=== PATIENT | female | born 1995 | race Caucasian/White ===

== ENCOUNTER 2017-08-27 17:36 | Emergency (ER) | payer SELFPAY ==
[~2017-08-27] VITALS: Ht 162.6 cm; Wt 47.5 kg
[~2017-08-27 17:36] MED LIST: BACT5UDC PO; MACR100C PO; PANT20 PO; Z.0.NO CURRENT MEDS
[2017-08-27 17:48] VITALS: BP 120/70; PULSE 101; RESP 16; TEMP 98.3; O2SAT 99
--- NOTE | 2017-08-27 18:14 | PD ---
HPI Chief Complaint: Engineer Process Problem/Complaint Time Seen by Provider: 17:56 Travel History International Travel<30 days: No Contact w/Intl Traveler<30days: No Traveled to known affect area: No History of Present Illness HPI This is a 22-year-old female who presents here complaining of STD exposure. She says that she had unprotected sex with a heterosexual partner and she was told that he had STD although she is unsure what exactly her partner has. She denies any pelvic pain, no vaginal bleeding or discharge. No fevers chills or night sweats no urinary frequency or urgency. PFSH Past Medical History Immunizations Current: Yes ?: Unknown Social History Alcohol Use: No Tobacco Use: No Substance Use: Yes (THC occasional use) Allergies-Medications (Allergen,Severity, Reaction): Coded Allergies: No Known Allergies (Verified Allergy, Unknown, 08/27/17) Reported Meds & Prescriptions Reported Meds & Active Scripts Active Macrobid (Nitrofurantoin Macrocrystals) 100 Mg Cap 100 Mg PO BID 5 Days Protonix (Pantoprazole Sodium) 20 Mg Tabdr 20 Mg PO DAILY 21 Days Bactrim Susp Per 5 Ml (Trimethoprim/Sulfamethoxazole) 40 Mg/200 Mg Susp 15 Ml PO BID 10 Days Reported No Current Meds (Miscellaneous Medication) Misc Review of Systems Except as stated in HPI: all other systems reviewed are Neg Physical Exam Narrative GENERAL: Alert oriented 3. SKIN: Focused skin assessment warm/dry. HEAD: Atraumatic. Normocephalic. EYES: Pupils equal and round. No scleral icterus. No injection or drainage. ENT: No nasal bleeding or discharge. Mucous membranes pink and moist. NECK: Trachea midline. No JVD. CARDIOVASCULAR: Regular rate and rhythm. No murmur appreciated. RESPIRATORY: No accessory muscle use. Clear to auscultation. Breath sounds equal bilaterally. GASTROINTESTINAL: Abdomen soft, non-tender, nondistended. Hepatic and splenic margins not palpable. MUSCULOSKELETAL: No obvious deformities. No clubbing. No cyanosis. No edema. NEUROLOGICAL: Awake and alert. No obvious cranial nerve deficits. Motor grossly within normal limits. Normal speech. PSYCHIATRIC: Appropriate mood and affect; insight and judgment normal. Data Data Last Documented VS Vital Signs Date Time Temp Pulse Resp B/P (MAP) Pulse Ox O2 Delivery O2 Flow Rate FiO2 08/27/17 19:20 98.2 92 18 123/74 (90) 98 Orders Orders Gc And Chlamydia Pcr (08/27/17 18:03) Urinalysis - C+S If Indicated (08/27/17 18:03) Azithromycin (Zithromax) (08/27/17 18:15) Ceftriaxone Inj (Rocephin Inj) (08/27/17 18:15) Metronidazole (Flagyl) (08/27/17 18:45) Ed Discharge Order (08/27/17 18:34) Urine Culture (08/27/17 18:30) Labs Laboratory Tests Test 08/27/17 18:30 Urine Collection Type CLEAN CATCH Urine Color YELLOW Urine Turbidity CLEAR Urine pH 6.0 Urine Specific [place] LESS/EQUAL 1.005 Urine Protein NEG mg/dL Urine Glucose (UA) NEG mg/dL Urine Ketones NEG mg/dL Urine Occult Blood NEG Urine Nitrite NEG Urine Bilirubin NEG Urine Urobilinogen 0.2 MG/DL Urine Leukocyte Esterase SMALL Urine WBC 9-14 /hpf Urine WBC Clumps OCC Urine Squamous Epithelial Cells 6-8 /hpf Microscopic Urinalysis Comment CULTURE INDICATED Urine Collection Time 18:30 Chlamydia trachomatis DNA (PCR) NOT DETECTED Neisseria gonorrhoeae DNA (PCR) DETECTED MDM Medical Decision Making Medical Screen Exam Complete: Yes Emergency Medical Condition: Yes Differential Diagnosis STD exposure. Narrative Course This is a 22-year-old female presents to the ER complaining of STD exposure. Patient has no symptoms we will go ahead and treat her for STD and send the labs. Explained the patient it will take about 3 days to come back and she needs a follow-up on the results. Diagnosis Primary Impression: STD exposure Disposition: 01 DISCHARGE HOME Condition: Stable Tremaine Gomes MD Aug 27, 2017 18:14
[2017-08-27] MEDS ORDERED: AZITHROMYCIN 250 MG TAB PO ONE (18:15)
[2017-08-27] MEDS ORDERED: cefTRIAXone 250 MG VIAL IM ONE (18:15)
[2017-08-27 18:38] LABS: BILIRUBIN, URINE NEG (NEG); BLOOD, URINE NEG (NEG); GLUCOSE,URINE NEG (NEG); KETONE, URINE NEG (NEG); NITRITE,URINE NEG (NEG); URINE COLOR YELLOW (YELLW/STRAW); URINE LEUKOCYTE ESTERASE SMALL (NEG)
[2017-08-27 18:45] LABS: WHITE BLOOD CELL CLUMPS OCC
[2017-08-27] MEDS ORDERED: metroNIDAZOLE 500 MG TAB PO ONE (18:45)
[2017-08-27 19:20] VITALS: BP 123/74; TEMP 98.2
== END 2017-08-27 19:21 | disposition home or self-care (01) ==
LOC: PHED 17:36
DX: Z20.2 Contact with and (suspected) exposure to infections with a predominantly sexual mode of transmission (principal); R82.99 Other abnormal findings in urine
CPT/HCPCS: 81001; 87086; 87491; 87591; 96372; 99283; J0696